=== PATIENT | female | born 1975 | race Caucasian/White ===

== ENCOUNTER 2023-08-27 07:46 | Emergency (ER) | payer BC, OTHER ==
[2023-08-27 09:54] VITALS: BP 161/105; PULSE 94
== END 2023-08-27 09:45 | disposition home or self-care (01) ==
LOC: LB.ED 07:46
DX: S93.601A Unspecified sprain of right foot, initial encounter (principal); I10 Essential (primary) hypertension; Z86.16 Personal history of COVID-19; Z87.891 Personal history of nicotine dependence; Z90.710 Acquired absence of both cervix and uterus; Z79.899 Other long term (current) drug therapy; X50.1XXA Overexertion from prolonged static or awkward postures, initial encounter; Y93.89 Activity, other specified
CPT/HCPCS: 73630-RT; 99282; 99283